=== PATIENT | male | born 1950 | race Two or more races ===

== ENCOUNTER 2020-02-28 08:17 | Outpatient (CLI) | payer OTHER | END 2020-02-28 08:28 | disposition home or self-care (01) | LOC: SONOGRAMA 08:17 | PROVIDERS: ATTEND Pathology Anatomic Pathology & Clinical Pathology | DX: E04.2 Nontoxic multinodular goiter (principal); D34 Benign neoplasm of thyroid gland; E06.5 Other chronic thyroiditis; E04.8 Other specified nontoxic goiter ==

== ENCOUNTER 2022-01-10 08:38 | Outpatient (CLI) | payer OTHER | END 2022-01-10 08:39 | disposition home or self-care (01) | LOC: RX STUDY 08:38 | DX: E04.2 Nontoxic multinodular goiter (principal); R13.10 Dysphagia, unspecified ==